=== PATIENT | male | born 1980 | race Caucasian/White ===

== ENCOUNTER 2017-01-27 02:30 | Emergency (ER) | payer MEDICAID, OTHER, SELFPAY ==
[~2017-01-27] VITALS: Ht 172.7 cm; Wt 77.9 kg
[2017-01-27] MEDS ORDERED: MIRTAZAPINE (03:00)
[2017-01-27] MEDS ORDERED: LORazepam 1MG TABLET ONE (03:22)
[2017-01-27] MEDS ORDERED: LORazepam 1MG TABLET PO ONE (03:30)
[2017-01-27 04:58] VITALS: BP 138/72
== END 2017-01-27 05:06 | disposition home or self-care (01) ==
LOC: ED 02:57
DX: F22 Delusional disorders (principal); F41.9 Anxiety disorder, unspecified; Z91.19 Patient's noncompliance with other medical treatment and regimen; F15.10 Other stimulant abuse, uncomplicated
CPT/HCPCS: 99284